=== PATIENT | female | born 1945 | race Caucasian/White ===

== ENCOUNTER → 2019-07-15 | Outpatient (CLI) | payer MEDICARE ==
[~2019-07-15] MED LIST: AMLO10TA8 PO; AZIT500T PO; CEFD300C37 PO; CHOL100011 PO; DOCU-131 PO; ENOX40SY4 SQ; ERGO500017 PO; FUROSEMIDE 20 MG/2 ML ONE; INSU100V5 SQ-INSULIN; INSU100V8 SQ; LISI-420 PO; METF10002 PO; METO25TA35 PO; OXYC1TAB7 PO; PIOG15TA69 PO
== END | disposition home or self-care (01) ==
LOC: RAD 11:53
PROVIDERS: ATTEND Urology
DX: N13.4 Hydroureter (principal); N13.30 Unspecified hydronephrosis
CPT/HCPCS: 78708; A9562; J1940